=== PATIENT | male | born 1950 | race Caucasian/White ===

== ENCOUNTER 2016-12-02 14:59 | Observation (INO) ==
[2016-12-02] MEDS ORDERED: Ondansetron 4 MG/2 ML VIAL IVP ONE (15:27)
[2016-12-02] MEDS ORDERED: 0.9 % Sodium Chloride 1,000 ML IVC ONE (15:27)
[2016-12-02 15:43] LABS: Basophils % 0.2 %; Eosinophils % 0.4 %; Hematocrit 49.7 % (37.5-50.1); Hemoglobin 16.7 g/dL (12.9-16.9); Immature Granulocytes % 0.4 % (0-4); Lymphocytes # 0.7 K/mcL (0.6-4.6); Lymphocytes % 7.5 %; Mean Corpuscular HGB Conc 33.6 g/dL (31.6-35.5); Mean Corpuscular Hemoglobin 31.8 pg (28.0-33.3); Mean Corpuscular Volume 94.7 fL (83.0-100.0); Mean Platelet Volume 9.7 fL (9.4-12.4); Monocytes # 0.3 K/mcL (0.0-1.3); Monocytes % 2.8 %; Neutrophils # 8.4 K/mcL (1.6-8.9); Platelet Count 201 K/mcL (140-400); Red Blood Count 5.25 M/mcL (4.19-5.50); Red Cell Distribution Width 12.5 % (11.5-14.5); Segmented Neutrophils % 88.7 %
[2016-12-02 15:50] LABS: Prothrombin Time 10.7 Seconds (9.4-12.1)
[2016-12-02 15:53] LABS: Activated Partial Thrombo Time 25.4 Seconds (26.0-36.0)
[2016-12-02 16:03] LABS: Albumin 4.1 g/dL (3.5-5.0); Albumin/Globulin Ratio 1.3 (1.1-2.2); Alkaline Phosphatase 68 Units/L (38-126); Aspartate Amino Transferase 20 Units/L (5-34); BUN/Creatinine Ratio 18 (6-26); Bilirubin,Direct 0.3 mg/dL (0.0-0.5); Bilirubin,Indirect 0.4 mg/dL (0.0-1.2); Bilirubin,Total 0.7 mg/dL (0.2-1.2); Blood Urea Nitrogen 21 mg/dL (8-26); Calcium 9.5 mg/dL (8.6-10.8); Carbon Dioxide 24 mEq/L (19-29); Chloride 104 mEq/L (98-109); Globulin 3.2 g/dL (2.4-3.5); Glucose 113 mg/dL (70-99); Lipase 153 Units/L (8-78); Osmolality,Calculated 294 (280-300); Potassium 3.3 mEq/L (3.5-4.5); Sodium 140 mEq/L (136-145); Total Protein 7.3 g/dL (6.0-8.3); eGFR For African Americans > 60 (> 60); eGFR For Non-African Americans > 60 (> 60)
[2016-12-02 16:08] LABS: Alanine Aminotransferase < 6 Units/L (0-55)
--- NOTE | 2016-12-02 16:16 | Emergency Department Note ---
Disposition Clinical Impression: Nausea & vomiting, Elevated lipase Disposition: Home, Self-Care Condition: Good General Adult HPI - General Chief complaint: ED Abdominal Pain Stated complaint: abd pain, vomiting Time Seen by Provider: 12/02/16 15:26 Source: patient, family Limitations: no limitations Nursing Notes Reviewed: Yes Vital Signs Reviewed: Yes - History of Present Illness Pain Scale: 6 - Related Data Home Medications Medication Instructions Recorded Confirmed Celecoxib [Celebrex] 200 mg PO BID 12/02/16 12/02/16 L. Acidophilus/Pectin, [place] 1 cap PO DAILY 12/02/16 12/02/16 [Acidophilus Probiotic Capsule] Multivitamin [Multi-Day Vitamins] 1 tab PO DAILY 12/02/16 12/02/16 Zolpidem [Ambien] 10 mg PO HS 12/02/16 12/02/16 Allergies Allergy/AdvReac Type Severity Reaction Status Date / Time No Known Allergies Allergy Verified 12/02/16 16:25 Past Medical History - Past Medical History Medical history: Reports: hypertension - Social History Smoking Status: Never smoker Alcohol use: Reports: none Drug use: Reports: none Physical Exam - General Limitations: no limitations General appearance: anxious Course Vital Signs Temperature 0 F L 12/02/16 15:00 Pulse Rate 0 12/02/16 15:00 Respiratory Rate 16 12/02/16 15:00 Blood Pressure 0/0 12/02/16 15:00 O2 Sat by Pulse Oximetry 96 12/02/16 15:00 Temperature 97.3 F L 12/02/16 17:20 Pulse Rate 80 12/02/16 17:20 Respiratory Rate 18 12/02/16 17:21 Blood Pressure 109/68 12/02/16 17:21 O2 Sat by Pulse Oximetry 96 12/02/16 17:20 Oxygen Delivery Oxygen Delivery Room Air Medical Decision Making - MDM Narrative Medical decision making narrative: I examined this patient and my medical decision-making was reviewed with the FISHERY BIOLOGIST/PA/Advanced Practice Nurse/Resident Physician. I agree with the documented findings, disposition and treatment plan as described except to the extent set forth below. Patient was seen and evaluated by Dr. Simon and myself , I agree with his evaluation and management plan, I supervised the care of the patient throughout his stay. Patient comes in today with nausea vomiting diarrhea and feeling chills. He has ate mushrooms earlier today which triana mushrooms which they purchased from her friend. She said it looked like knott sheet the same once he did. He said he was feeling so before does not have any chest pain no back pain or shortness of breath. Her checking labs on him and reassess. Since he got sick soon after eating those that is actually up positive thing instead of a delayed toxicity which is common with toxic mushrooms. However this may not have remaining review of mushrooms either since we have been seeing a lot of GI illness with the same symptoms he has. Return to make him comfortable and then get laboratory work and reassess. 1624 hrs.: Patient's labs are back his lipase is elevated as LFTs are normal. When I bring him into the hospital. He will need following of his LFTs and lipase. I do not think he needs a CT as a abdomen at this point is not having abdominal pain. Stool culture is pending. Patient's agreeing with this plan. Impressions nausea vomiting diarrhea status post ingestion of mushrooms rule out hepatic toxicity. 1640 hrs.: I spoke with poison control and updated them on his lab work. Informed to be admitted. No further recommendations from them. - Lab Data Result diagrams: 12/02/16 15:31 12/02/16 15:31 Lab Results 12/02/16 12/02/16 12/02/16 Range/Units 15:31 15:31 15:31 WBC 9.4 (4.3-11.1) K/mcL RBC 5.25 (4.19-5.50) M/mcL Hgb 16.7 (12.9-16.9) g/dL Hct 49.7 (37.5-50.1) % MCV 94.7 (83.0-100.0) fL MCH 31.8 (28.0-33.3) pg MCHC 33.6 (31.6-35.5) g/dL RDW 12.5 (11.5-14.5) % Plt Count 201 (140-400) K/mcL MPV 9.7 (9.4-12.4) fL Immature Gran % 0.4 (0-4) % Seg Neutrophils % 88.7 % Lymphocytes % 7.5 % Monocytes % 2.8 % Eosinophils % 0.4 % Basophils % 0.2 % Neutrophils # 8.4 (1.6-8.9) K/mcL Lymphocytes # 0.7 (0.6-4.6) K/mcL Monocytes # 0.3 (0.0-1.3) K/mcL Eosinophils # 0.0 (0.0-0.6) K/mcL Basophils # 0.0 (0.0-0.2) K/mcL PT 10.7 (9.4-12.1) Seconds INR 1.0 APTT 25.4 L (26.0-36.0) Seconds Sodium (136-145) mEq/L Potassium (3.5-4.5) mEq/L Chloride (98-109) mEq/L Carbon Dioxide (19-29) mEq/L BUN (8-26) mg/dL Creatinine (0.72-1.25) mg/dL Est GFR ( Amer) (> 60) Est GFR (Non-Af Amer) (> 60) BUN/Creatinine Ratio (6-26) Glucose (70-99) mg/dL Calculated Osmolality (280-300) Calcium (8.6-10.8) mg/dL Total Bilirubin (0.2-1.2) mg/dL Direct Bilirubin (0.0-0.5) mg/dL Indirect Bilirubin (0.0-1.2) mg/dL AST (5-34) Units/L ALT (0-55) Units/L Alkaline Phosphatase (38-126) Units/L Troponin I 0.00 (0-0.03) ng/mL Serum Total Protein (6.0-8.3) g/dL Albumin (3.5-5.0) g/dL Globulin (2.4-3.5) g/dL Albumin/Globulin Ratio (1.1-2.2) Lipase (8-78) Units/L Stool Occult Blood (Negative) 12/02/16 12/02/16 Range/Units 15:31 16:00 WBC (4.3-11.1) K/mcL RBC (4.19-5.50) M/mcL Hgb (12.9-16.9) g/dL Hct (37.5-50.1) % MCV (83.0-100.0) fL MCH (28.0-33.3) pg MCHC (31.6-35.5) g/dL RDW (11.5-14.5) % Plt Count (140-400) K/mcL MPV (9.4-12.4) fL Immature Gran % (0-4) % Seg Neutrophils % % Lymphocytes % % Monocytes % % Eosinophils % % Basophils % % Neutrophils # (1.6-8.9) K/mcL Lymphocytes # (0.6-4.6) K/mcL Monocytes # (0.0-1.3) K/mcL Eosinophils # (0.0-0.6) K/mcL Basophils # (0.0-0.2) K/mcL PT (9.4-12.1) Seconds INR APTT (26.0-36.0) Seconds Sodium 140 (136-145) mEq/L Potassium 3.3 L (3.5-4.5) mEq/L Chloride 104 (98-109) mEq/L Carbon Dioxide 24 (19-29) mEq/L BUN 21 (8-26) mg/dL Creatinine 1.18 (0.72-1.25) mg/dL Est GFR ( Amer) > 60 (> 60) Est GFR (Non-Af Amer) > 60 (> 60) BUN/Creatinine Ratio 18 (6-26) Glucose 113 H (70-99) mg/dL Calculated Osmolality 294 (280-300) Calcium 9.5 (8.6-10.8) mg/dL Total Bilirubin 0.7 (0.2-1.2) mg/dL Direct Bilirubin 0.3 (0.0-0.5) mg/dL Indirect Bilirubin 0.4 (0.0-1.2) mg/dL AST 20 (5-34) Units/L ALT < 6 (0-55) Units/L Alkaline Phosphatase 68 (38-126) Units/L Troponin I (0-0.03) ng/mL Serum Total Protein 7.3 (6.0-8.3) g/dL Albumin 4.1 (3.5-5.0) g/dL Globulin 3.2 (2.4-3.5) g/dL Albumin/Globulin Ratio 1.3 (1.1-2.2) Lipase 153 H (8-78) Units/L Stool Occult Blood Positive A (Negative)
--- NOTE | 2016-12-02 16:26 | Emergency Department Note ---
Disposition Clinical Impression: Elevated lipase Nausea & vomiting Qualifiers: Vomiting type: unspecified Vomiting Intractability: non-intractable Qualified Code(s): R11.2 - Nausea with vomiting, unspecified Disposition: Home, Self-Care Condition: Good Time of Disposition: 17:35 General Adult HPI - General Chief complaint: ED Abdominal Pain Stated complaint: abd pain, vomiting Time Seen by Provider: 12/02/16 15:26 Source: patient, family Limitations: no limitations Nursing Notes Reviewed: Yes Vital Signs Reviewed: Yes - History of Present Illness HPI Narrative: Patient name Rickey snider around 11:30 today. He started feeling very weak and nauseated around 1:30. Got very chilled. He has been vomiting and had several episodes of diarrhea since. He complains of a cramping abdominal pain. There are no alleviating or provoking factors. His also ate these mushrooms and is not symptomatic. The only thing the patient ate that his did not was one piece of ma. Pain Scale: 6 - Related Data Home Medications Medication Instructions Recorded Confirmed Celecoxib [Celebrex] 200 mg PO BID 12/02/16 12/02/16 L. Acidophilus/Pectin, [place] 1 cap PO DAILY 12/02/16 12/02/16 [Acidophilus Probiotic Capsule] Multivitamin [Multi-Day Vitamins] 1 tab PO DAILY 12/02/16 12/02/16 Zolpidem [Ambien] 10 mg PO HS 12/02/16 12/02/16 Allergies Allergy/AdvReac Type Severity Reaction Status Date / Time No Known Allergies Allergy Verified 12/02/16 16:25 All systems ED: reviewed and negative except as stated. Constitutional: Reports: chills. Denies: fever ENT ED: Denies: throat pain, congestion, dysphagia Cardiovascular: Denies: chest pain, palpitations, dyspnea on exertion, syncope Respiratory: Denies: cough, dyspnea, wheezes Gastrointestinal: Reports: abdominal pain (Cramping is having diarrhea.), nausea , vomiting (Began around 1:30 this afternoon.), diarrhea (Several episodes began at 1:30 this afternoon.). Denies: hematemesis, melena, hematochezia Genitourinary: Denies: urgency, dysuria, frequency, hematuria Musculoskeletal: Denies: back pain, neck pain Integumentary: Denies: rash Neurological: Reports: weakness (Since the nausea vomiting and diarrhea began.) . Denies: headache Past Medical History - Past Medical History Medical history: Reports: hypertension - Social History Smoking Status: Never smoker Alcohol use: Reports: none Drug use: Reports: none Physical Exam - General Limitations: no limitations General appearance: alert, anxious - Head Head exam: atraumatic, normocephalic - Eye Eye exam: Present: normal appearance, PERRL, EOMI. Absent: scleral icterus - ENT ENT exam: normal exam, normal oropharynx, mucous membranes moist - Neck Neck exam: Present: normal inspection, full ROM, trachea midline - Chest Chest inspection: Present: normal inspection, symmetric chest wall rise. Absent : tenderness, rash - Respiratory Respiratory exam: Present: normal lung sounds bilaterally. Absent: respiratory distress - Cardiovascular Cardiovascular exam: Present: regular rate, normal rhythm, normal heart sounds - Abdominal Exam Abdominal exam: Present: soft, Non-Tender (No pain on palpation.), hyperactive bowel sounds. Absent: organomegaly, Mcnally's sign, Rovsing's sign, tenderness at McBurney's Point - Extremities Exam Extremities exam: Present: normal inspection, full ROM, normal capillary refill. Absent: tenderness, pedal edema - Back Exam Back exam: Present: normal inspection, full ROM. Absent: tenderness, CVA tenderness (R), CVA tenderness (L) - Neurological Exam Neurological exam: Present: alert, oriented X3, normal gait - Psychiatric Psychiatric exam: Present: normal affect, normal mood - Skin Skin exam: Present: warm, dry, intact, normal color. Absent: rash, cyanosis, erythema Course Course Narrative: Now patient presenting to the emergency department after consuming raw mushrooms at 11:30 today. He states around 1:30 PM and Nausea vomiting and diarrhea. He does complain of abdominal cramping associated with the diarrhea. His mushrooms and is not sick. He states he did eat additional piece of ma. The purchase the mushrooms from another person. The states that the patient did end up spitting out the stem of one of the mushrooms saying that was very chewy. He states that he is chilling. He has had several episodes of diarrhea while he is in the emergency department. He denies any shortness of breath or chest pain. His lung sounds are clear his heart sounds are normal. His abdomen is soft and nontender on palpation. We will admit patient for serial liver enzymes. For possible mushroom toxicity. His lipase is elevated. We have started him on fluids. We have also given him Zofran. This has stopped his vomiting at this time. We will give him some fentanyl for the cramping in his abdomen. Patient is agreeable to admission. - Reevaluation(s) Reevaluation #1: Patient is having several bouts of diarrhea while here in the emergency department. He is complaining of abdominal cramping at this time. We will give patient medication to help with the cramping. He is agreeable to admission at this time. We will need to follow his LFTs while he is here. He does have an elevated lipase. We will give him fluids and continue with his nausea medication. Time: 16:37 Vital Signs Temperature 0 F L 12/02/16 15:00 Pulse Rate 0 12/02/16 15:00 Respiratory Rate 16 12/02/16 15:00 Blood Pressure 0/0 12/02/16 15:00 O2 Sat by Pulse Oximetry 96 12/02/16 15:00 Temperature 97.3 F L 12/02/16 17:20 Pulse Rate 80 12/02/16 17:20 Respiratory Rate 18 12/02/16 17:21 Blood Pressure 109/68 12/02/16 17:21 O2 Sat by Pulse Oximetry 96 12/02/16 17:20 Oxygen Delivery Oxygen Delivery Room Air Medical Decision Making - Medical Records Medical records reviewed: Yes I reviewed the patient's medical records. - Lab Data Lab results reviewed: Yes I reviewed the patient's lab results. Result diagrams: 12/02/16 15:31 12/02/16 15:31 Lab Results 12/02/16 12/02/16 12/02/16 Range/Units 15:31 15:31 15:31 WBC 9.4 (4.3-11.1) K/mcL RBC 5.25 (4.19-5.50) M/mcL Hgb 16.7 (12.9-16.9) g/dL Hct 49.7 (37.5-50.1) % MCV 94.7 (83.0-100.0) fL MCH 31.8 (28.0-33.3) pg MCHC 33.6 (31.6-35.5) g/dL RDW 12.5 (11.5-14.5) % Plt Count 201 (140-400) K/mcL MPV 9.7 (9.4-12.4) fL Immature Gran % 0.4 (0-4) % Seg Neutrophils % 88.7 % Lymphocytes % 7.5 % Monocytes % 2.8 % Eosinophils % 0.4 % Basophils % 0.2 % Neutrophils # 8.4 (1.6-8.9) K/mcL Lymphocytes # 0.7 (0.6-4.6) K/mcL Monocytes # 0.3 (0.0-1.3) K/mcL Eosinophils # 0.0 (0.0-0.6) K/mcL Basophils # 0.0 (0.0-0.2) K/mcL PT 10.7 (9.4-12.1) Seconds INR 1.0 APTT 25.4 L (26.0-36.0) Seconds Sodium (136-145) mEq/L Potassium (3.5-4.5) mEq/L Chloride (98-109) mEq/L Carbon Dioxide (19-29) mEq/L BUN (8-26) mg/dL Creatinine (0.72-1.25) mg/dL Est GFR ( Amer) (> 60) Est GFR (Non-Af Amer) (> 60) BUN/Creatinine Ratio (6-26) Glucose (70-99) mg/dL Calculated Osmolality (280-300) Calcium (8.6-10.8) mg/dL Total Bilirubin (0.2-1.2) mg/dL Direct Bilirubin (0.0-0.5) mg/dL Indirect Bilirubin (0.0-1.2) mg/dL AST (5-34) Units/L ALT (0-55) Units/L Alkaline Phosphatase (38-126) Units/L Troponin I 0.00 (0-0.03) ng/mL Serum Total Protein (6.0-8.3) g/dL Albumin (3.5-5.0) g/dL Globulin (2.4-3.5) g/dL Albumin/Globulin Ratio (1.1-2.2) Lipase (8-78) Units/L Stool Occult Blood (Negative) 12/02/16 12/02/16 Range/Units 15:31 16:00 WBC (4.3-11.1) K/mcL RBC (4.19-5.50) M/mcL Hgb (12.9-16.9) g/dL Hct (37.5-50.1) % MCV (83.0-100.0) fL MCH (28.0-33.3) pg MCHC (31.6-35.5) g/dL RDW (11.5-14.5) % Plt Count (140-400) K/mcL MPV (9.4-12.4) fL Immature Gran % (0-4) % Seg Neutrophils % % Lymphocytes % % Monocytes % % Eosinophils % % Basophils % % Neutrophils # (1.6-8.9) K/mcL Lymphocytes # (0.6-4.6) K/mcL Monocytes # (0.0-1.3) K/mcL Eosinophils # (0.0-0.6) K/mcL Basophils # (0.0-0.2) K/mcL PT (9.4-12.1) Seconds INR APTT (26.0-36.0) Seconds Sodium 140 (136-145) mEq/L Potassium 3.3 L (3.5-4.5) mEq/L Chloride 104 (98-109) mEq/L Carbon Dioxide 24 (19-29) mEq/L BUN 21 (8-26) mg/dL Creatinine 1.18 (0.72-1.25) mg/dL Est GFR ( Amer) > 60 (> 60) Est GFR (Non-Af Amer) > 60 (> 60) BUN/Creatinine Ratio 18 (6-26) Glucose 113 H (70-99) mg/dL Calculated Osmolality 294 (280-300) Calcium 9.5 (8.6-10.8) mg/dL Total Bilirubin 0.7 (0.2-1.2) mg/dL Direct Bilirubin 0.3 (0.0-0.5) mg/dL Indirect Bilirubin 0.4 (0.0-1.2) mg/dL AST 20 (5-34) Units/L ALT < 6 (0-55) Units/L Alkaline Phosphatase 68 (38-126) Units/L Troponin I (0-0.03) ng/mL Serum Total Protein 7.3 (6.0-8.3) g/dL Albumin 4.1 (3.5-5.0) g/dL Globulin 3.2 (2.4-3.5) g/dL Albumin/Globulin Ratio 1.3 (1.1-2.2) Lipase 153 H (8-78) Units/L Stool Occult Blood Positive A (Negative)
[2016-12-02] MEDS ORDERED: *HR* FentaNYL (PF) 100 MCG/2 ML VIAL IVP ONE (16:39)
[2016-12-02] MEDS ORDERED: 0.9 % Sodium Chloride 1,000 ML IVC SCH (20:30)
[2016-12-02 21:01] LABS: Bilirubin,Urine Small (Negative); Blood,Urine Negative (Negative); Clarity,Urine Clear (Clear); Glucose,Urine (UA) Normal (Normal); Ketones,Urine Trace mg/dL (Negative); Leukocyte Esterase,Urine Negative (Negative); Nitrite,Urine Negative (Negative); PH,Urine 5.5 pH Units (5.0-8.0); Protein,Urine 30 mg/dL (Neg-Trace); Specific Gravity,Urine >= 1.030 (1.010-1.025); Urobilinogen,Urine Normal (Normal)
[2016-12-02 21:02] LABS: Color,Urine Dark Yellow (Yellow)
[2016-12-02 21:13] LABS: Mucus,Urine Moderate (Few)
[2016-12-02 21:14] LABS: WBC,Urine 0-3 per hpf (0-3)
[2016-12-02 21:15] LABS: RBC,Urine 0-3 per hpf (0-3)
[2016-12-02] MEDS ORDERED: Naloxone 0.4 MG/ML INJ IVP PRN (21:23)
[2016-12-02] MEDS ORDERED: Acetaminophen 325 MG TABLET PO PRN (21:23)
[2016-12-02] MEDS ORDERED: Ondansetron 4 MG/2 ML VIAL IVP PRN (21:24)
[2016-12-02] MEDS ORDERED: Pantoprazole 40 MG VIAL IVP ONE (21:24)
[2016-12-02] MEDS ORDERED: Potassium Chloride Elixir 20 MEQ/15 ML UDC PO ONE (21:26)
--- NOTE | 2016-12-02 21:27 | Internal Med History&Physical ---
Date of Encounter: 12/02/16 Time of Encounter: 21:00 Assessment and Plan (1) Mushroom poisoning Current visit: Yes Status: Acute multiple episodes of vomiting and diarrhea after eating triana / false triana mushrooms at about 11:30 AM. His symptoms started about 1:30 PM. WIll monitor renal function and LFTs. When the pt improves, consider discussing with poison control prior to discharge. Qualifiers: Encounter type: initial encounter Injury intent: accidental or unintentional Qualified Code(s): T62.0X1A - Toxic effect of ingested mushrooms , accidental (unintentional), initial encounter (2) Nausea & vomiting Current visit: Yes Status: Acute Likely due to mushroom poisoning. Improved with antiemetics. On IV fluids. Qualifiers: Vomiting type: unspecified Vomiting Intractability: intractable Qualified Code(s): R11.2 - Nausea with vomiting, unspecified (3) Diarrhea Current visit: Yes Status: Acute Likely due to mushroom poisoning. Improved. On IV fluids. Qualifiers: Diarrhea type: unspecified type Qualified Code(s): R19.7 - Diarrhea, unspecified (4) Elevated lipase Current visit: Yes Status: Acute Possibly related to nausea / vomiting / gastritis. will treat with IV fluids and pantoprazole. Internal Medicine - H&P: HPI Chief complaint: vomiting, diarrhea Admitted From: Emergency Dept Plans for Post Hospital Care: Home History of present illness: Mr. Fuentes is a 66 year old male with past medical hx significant for rheumatoid arthritis (not on biologicals), presents with multiple episodes of vomiting and diarrhea after eating triana / false triana mushrooms at about 11 :30 AM. His symptoms started about 1:30 PM. Started as nausea, vomiting followed by episodes of diarrhea. Had some blood in the last episodes of diarrhea. Reports abdominal cramping, which is generalized and some improvement with the pain meds in the ER. No fever, shortness of breath, chest pain, cough or expectoration. Pts also ate the mushrooms but did not develop symptoms (there is suspicion that the pt may have eaten false triana). Pt was given Zofran, IV fluids and IV fentanyl in the ER. ER physician discussed with poison control, and recommended monitoring LFTS and admission. Pt is admitted to the hospitalist service for further management. Past Med Surg Social Fam HX - Past Medical History Medical history: hypertension Psychiatric history: no psych history - Social History Smoking Status: Never smoker Smokeless Tobacco Status: No Alcohol use: none, occasionally Drug use: none - Family History Mother Living Status: Age at : 89 Cause of : Heart Failure Hx Family Cardiac Disorders: Yes Father Living Status: Internal Medicine - H&P: Meds Celecoxib [Celebrex] 200 mg PO BID 12/02/16 [History] L. Acidophilus/Pectin, [place] [Acidophilus Probiotic Capsule] 1 cap PO DAILY [History] Multivitamin [Multi-Day Vitamins] 1 tab PO DAILY 12/02/16 [History] Zolpidem [Ambien] 10 mg PO HS 12/02/16 [History] Allergies No Known Allergies Allergy (Verified 12/02/16 16:25) All Systems PM: A 10-system review of systems was performed and is negative for pertinent findings except as documented above in the HPI. - Constitutional Vitals: Temp Pulse Resp BP Pulse Ox 97.9 F 88 18 160/98 98 12/02/16 18:52 12/02/16 18:52 12/02/16 18:52 12/02/16 18:52 12/02/16 18:52 Exam: General: Not in acute distress at the time of my evaluation HEENT: Oral mucosa is moist. No conjunctival palor or scleral icterus Neck: No obvious neck swellings Lungs: Clear to auscultation Cardiac: Regular rate and rhythm. No significant murmurs Abdomen: mild tenderness. Bowel sounds present Genitourinary: No edge catheter Neurological: Alert and oriented. No gross localizing deficits Psych: Not aggressive or agitated Extremities: no significant leg edema Skin: No generalized rash Internal Med - H&P Results - Labs CBC & Chem 7: 12/02/16 15:31 12/02/16 15:31 Labs: Urine 12/02/16 Range/Units 20:25 Urine Color Dark Yellow (Yellow) Urine Clarity Clear (Clear) Urine pH 5.5 (5.0-8.0) pH Units Ur Specific [place] >= 1.030 H (1.010-1.025) Urine Protein 30 H (Neg-Trace) mg/dL Urine Glucose (UA) Normal (Normal) mg/dL - VTE Reasons for not Prescribing Prophylaxis: Treatment not Indicated - Low risk for VTE
[2016-12-02] MEDS: 0.9 % Sodium Chloride 1,000 ML IVC SCH (22:06)
[2016-12-03] MEDS: 0.9 % Sodium Chloride 1,000 ML IVC SCH (04:31)
[2016-12-03 07:05] VITALS: BP 128/57
[2016-12-03 07:32] LABS: INR 1.1; Prothrombin Time 11.6 Seconds (9.4-12.1)
[2016-12-03 07:41] LABS: Basophils % 0.4 %; Eosinophils # 0.1 K/mcL (0.0-0.6); Eosinophils % 0.7 %; Hematocrit 43.6 % (37.5-50.1); Immature Granulocytes % 0.3 % (0-4); Lymphocytes # 0.4 K/mcL (0.6-4.6); Lymphocytes % 4.9 %; Mean Corpuscular HGB Conc 33.3 g/dL (31.6-35.5); Mean Corpuscular Volume 96.2 fL (83.0-100.0); Mean Platelet Volume 10.7 fL (9.4-12.4); Monocytes # 0.8 K/mcL (0.0-1.3); Neutrophils # 6.3 K/mcL (1.6-8.9); Platelet Count 188 K/mcL (140-400); Red Blood Count 4.53 M/mcL (4.19-5.50); Red Cell Distribution Width 12.9 % (11.5-14.5); Segmented Neutrophils % 83.7 %
[2016-12-03 07:57] LABS: Hemoglobin 14.5 g/dL (12.9-16.9)
[2016-12-03] MEDS ORDERED: 0.9 % Sodium Chloride 1,000 ML IVC SCH (08:20)
[2016-12-03 08:27] LABS: Albumin/Globulin Ratio 1.2 (1.1-2.2); Alkaline Phosphatase 43 Units/L (38-126); Aspartate Amino Transferase 14 Units/L (5-34); BUN/Creatinine Ratio 25 (6-26); Blood Urea Nitrogen 23 mg/dL (8-26); Carbon Dioxide 18 mEq/L (19-29); Chloride 106 mEq/L (98-109); Globulin 2.5 g/dL (2.4-3.5); Glucose 107 mg/dL (70-99); Osmolality,Calculated 286 (280-300); Sodium 136 mEq/L (136-145); eGFR For African Americans > 60 (> 60); eGFR For Non-African Americans > 60 (> 60)
[2016-12-03 08:33] LABS: Alanine Aminotransferase < 6 Units/L (0-55); Calcium 7.8 mg/dL (8.6-10.8); Total Protein 5.5 g/dL (6.0-8.3)
--- NOTE | 2016-12-03 10:08 | Internal Med Progress Note ---
<Ed Noel - Last Filed: 12/03/16 10:06> Date of Encounter: 12/03/16 Time of Encounter: 10:06 - Assessment and plan (1) Mushroom poisoning Status: Acute Assessment and plan: Symptoms resolved. Patient ingested triana mushrooms and subsequently resulted in nausea vomiting and diarrhea which leads to concern for false triana ingestion. He has previously ingested mushrooms including triana mushrooms without throat swelling, nausea vomiting or diarrhea in the past. - Patient tolerating by mouth intake, vitals are stable, laboratory work appropriate. - I spoke with [place] poison control who are not completely convinced this is a false triana mushroom ingestion, his liver enzymes were never elevated and are normal today. Patient is asymptomatic. Plan: - Advance diet - Patient is stable for discharge this morning, follow with primary care provider. Qualifiers: Encounter type: initial encounter Injury intent: accidental or unintentional Qualified Code(s): T62.0X1A - Toxic effect of ingested mushrooms , accidental (unintentional), initial encounter (2) Nausea & vomiting Status: Acute Assessment and plan: Nausea vomiting consistent with enterocolitis. Specific source unknown correlating with wild mushroom ingestion. Unsure if this is a false morale mushroom ingestion intoxication versus gastroenterocolitis from another source ( viral versus bacterial). - Symptoms have resolved patient is tolerating by mouth intake. Qualifiers: Vomiting type: unspecified Vomiting Intractability: intractable Qualified Code(s): R11.2 - Nausea with vomiting, unspecified (3) Elevated lipase Status: Acute Assessment and plan: Elevated lipase likely secondary to gastroenterocolitis. Patient is asymptomatic and tolerating by mouth intake. - No need to repeat lipase. (4) Diarrhea Status: Acute Assessment and plan: Resolved. Qualifiers: Diarrhea type: unspecified type Qualified Code(s): R19.7 - Diarrhea, unspecified - Subjective Interval history: Mr. Fuentes 66-year-old male has been seen and evaluated this morning patient bedside. He is alert awake interactive in no acute distress. He said that he feels much better is without nausea vomiting diarrhea or abdominal discomfort. In further discussion regarding his symptoms he said that yesterday afternoon he ate triana mushrooms purchased from a friend and couple hours post ingestion had follow-up diaphoresis and clamminess nausea vomiting and diarrhea. His symptoms have since subsided and he had tolerated by mouth intake this morning. He denies any further diarrhea, blood in his bowel movements or any blood in his vomit. He feels much better and is looking forward to discharge. - Constitutional Vitals: Temp Pulse Resp BP Pulse Ox 98.2 F 80 16 128/57 99 12/03/16 07:04 12/03/16 07:04 12/03/16 07:04 12/03/16 07:04 12/03/16 07:04 General appearance: Present: cooperative, A&O X 3, pleasant, no acute distress - Head Head exam: Present: atraumatic, normocephalic - Eye Eye exam: Present: PERRL, conjuntiva pink, sclera anicteric Pupils: Present: PERRL - ENT ENT exam: Present: mucous membranes moist - Neck Neck exam general surgery: Present: supple, trachea midline. Absent: lymphadenopathy - Respiratory Respiratory exam: Present: CTAB. Absent: accessory muscle use, rales, rhonchi, wheezes - Cardiovascular Cardiovascular exam: Present: RRR, +S1, +S2. Absent: diastolic murmur, gallop, rubs, systolic murmur - GI/Abdominal GI/Abdominal exam: Present: normal bowel sounds, soft, no peritoneal signs. Absent: distended, tenderness Additional comments: Slightly tympanic over the epigastric region. 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 Absent: pedal edema, tenderness, warm - Neurological Exam Neurological exam: Present: alert, CN II-XII intact, oriented X3, no focal deficits. Absent: facial droop, speech deficit - Psychiatric Psychiatric exam: Present: normal affect, normal mood Internal Medicine: Result - Labs CBC & Chem 7: 12/03/16 04:58 12/03/16 04:58 Labs: Short CBC 12/03/16 Range/Units 04:58 WBC 7.5 (4.3-11.1) K/mcL Hgb 14.5 D (12.9-16.9) g/dL Hct 43.6 (37.5-50.1) % Plt Count 188 (140-400) K/mcL Neutrophils # 6.3 (1.6-8.9) K/mcL BMP 12/03/16 04:58 Sodium 136 Potassium 4.0 Chloride 106 Carbon Dioxide 18 L BUN 23 Creatinine 0.93 Glucose 107 H Calcium 7.8 L D Liver Function 12/03/16 Range/Units 04:58 Total Bilirubin 1.0 (0.2-1.2) mg/dL AST 14 (5-34) Units/L ALT < 6 (0-55) Units/L Alkaline Phosphatase 43 (38-126) Units/L Albumin 3.0 L D (3.5-5.0) g/dL Urine 12/02/16 Range/Units 20:25 Urine Color Dark Yellow (Yellow) Urine Clarity Clear (Clear) Urine pH 5.5 (5.0-8.0) pH Units Ur Specific [place] >= 1.030 H (1.010-1.025) Urine Protein 30 H (Neg-Trace) mg/dL Urine Glucose (UA) Normal (Normal) mg/dL - ABG Interpretation ABG results: PT/INR, D-dimer PT 11.6 Seconds (9.4-12.1) 12/03/16 04:58 - VTE Reasons for not Prescribing Prophylaxis: Treatment not Indicated - Low risk for VTE Consult Discharge Plan - Plan Additional Instructions: Follow-up with primary care provider in the next 3-5 days. If any new concerning medical symptoms including recurrent nausea vomiting diarrhea abdominal pain or chest pain he should return to the emergency department for further evaluation. - Avoid wild mushrooms. Referrals: Yosvany Vaz DO [Primary Care Provider] - (Appointment has been requested. The office will call Sunday with appointment date and time.) <Lisa Velazco - Last Filed: 12/03/16 17:32> Date of Encounter: 12/03/16 - Constitutional Vitals: Temp Pulse Resp BP Pulse Ox 98.2 F 80 16 128/57 99 12/03/16 07:04 12/03/16 07:04 12/03/16 07:04 12/03/16 07:04 12/03/16 07:04 Internal Medicine: Result - Labs CBC & Chem 7: 12/03/16 04:58 12/03/16 04:58 Labs: Short CBC 12/03/16 Range/Units 04:58 WBC 7.5 (4.3-11.1) K/mcL Hgb 14.5 D (12.9-16.9) g/dL Hct 43.6 (37.5-50.1) % Plt Count 188 (140-400) K/mcL Neutrophils # 6.3 (1.6-8.9) K/mcL BMP 12/03/16 04:58 Sodium 136 Potassium 4.0 Chloride 106 Carbon Dioxide 18 L BUN 23 Creatinine 0.93 Glucose 107 H Calcium 7.8 L D Liver Function 12/03/16 Range/Units 04:58 Total Bilirubin 1.0 (0.2-1.2) mg/dL AST 14 (5-34) Units/L ALT < 6 (0-55) Units/L Alkaline Phosphatase 43 (38-126) Units/L Albumin 3.0 L D (3.5-5.0) g/dL Urine 12/02/16 Range/Units 20:25 Urine Color Dark Yellow (Yellow) Urine Clarity Clear (Clear) Urine pH 5.5 (5.0-8.0) pH Units Ur Specific [place] >= 1.030 H (1.010-1.025) Urine Protein 30 H (Neg-Trace) mg/dL Urine Glucose (UA) Normal (Normal) mg/dL - ABG Interpretation ABG results: PT/INR, D-dimer PT 11.6 Seconds (9.4-12.1) 12/03/16 04:58 - Attending Attestation I examined this patient and reviewed laboratory, imaging and all diagnostic data. My medical decision-making was reviewed with Dr Noel - Resident Physician. I agree with the documented findings, disposition and treatment plan as described above
--- NOTE | 2016-12-03 10:23 | Discharge Summary ---
<Ed Noel - Last Filed: 12/03/16 10:21> Date of Encounter: 12/03/16 Time of Encounter: 10:21 - Discharge Diagnosis (1) Mushroom poisoning Priority: Primary Status: Acute Comments: Suspected mushroom intoxication but cannot rule out gastroenterocolitis of other source. Qualifiers: Encounter type: initial encounter Injury intent: accidental or unintentional Qualified Code(s): T62.0X1A - Toxic effect of ingested mushrooms , accidental (unintentional), initial encounter (2) Nausea & vomiting Priority: Primary Status: Resolved Comments: Resolved. Qualifiers: Vomiting type: unspecified Vomiting Intractability: intractable Qualified Code(s): R11.2 - Nausea with vomiting, unspecified (3) Elevated lipase Priority: Primary Status: Acute (4) Diarrhea Priority: Primary Status: Resolved Comments: Resolved. Qualifiers: Diarrhea type: unspecified type Qualified Code(s): R19.7 - Diarrhea, unspecified - Discharge Medications Home Medications: Celecoxib [Celebrex] 200 mg PO BID 12/02/16 [History] L. Acidophilus/Pectin, [place] [Acidophilus Probiotic Capsule] 1 cap PO DAILY [History] Multivitamin [Multi-Day Vitamins] 1 tab PO DAILY 12/02/16 [History] Zolpidem [Ambien] 10 mg PO HS 12/02/16 [History] Allergies/Adverse Reactions: Allergies No Known Allergies Allergy (Verified 12/02/16 16:25) Date of admission: 12/02/16 17:02 Primary care physician: Yosvany Vaz, Discharging clinician: Ed Noel Anticipated date of discharge: 12/03/16 - Patient Status Disposition: Home, Self-Care Condition: Good Functional capacity at discharge: independent ambulation Overall status at discharge: patient is progressing back to baseline - Discharge Instructions Follow Up With: Yosvany Vaz DO [Primary Care Provider] - (Appointment has been requested. The office will call Sunday with appointment date and time.) Additional Instructions: Follow-up with primary care provider in the next 3-5 days. If any new concerning medical symptoms including recurrent nausea vomiting diarrhea abdominal pain or chest pain he should return to the emergency department for further evaluation. - Avoid wild mushrooms. - Diet and Activity Activity: increase activity as tolerated Diet: advance to your usual diet Interval History: Mr. Fuentes 66-year-old male was admitted on 12/02/2016 with symptoms of nausea, vomiting, diarrhea and abdominal discomfort secondary to wild mushroom ingestion. Patient had ingested triana wild mushrooms several hours preceding symptoms. Patient was brought to the emergency department by his was evaluated and found to have an elevated lipase but normal liver function tests. Admitted for observation, poison control was contacted and patient was provided IV fluids for rehydration and medications for symptom control. He was stable overnight with resolution of his nausea, vomiting, diarrhea and tolerated by mouth intake. His vitals remained stable overnight. There was no elevation in his LFTs the following morning. [place] poison control was contacted again in the morning patient case was rediscussed with no further recommendations. Patient was seen and evaluated patient bedside this morning and deemed stable for discharge home with close follow-up with her primary care provider. This was discussed with Mr. Fuentes who is in agreement. Hospital course: Mr. Fuentes is a 66 year old male - Time Spent with Patient Total time spent providing and/or coordinating discharge services: - Constitutional Vitals: Temp Pulse Resp BP Pulse Ox 98.2 F 80 16 128/57 99 12/03/16 07:04 12/03/16 07:04 12/03/16 07:04 12/03/16 07:04 12/03/16 07:04 General appearance: Present: cooperative, A&O X 3, pleasant, no acute distress - Head Head exam: Present: atraumatic, normocephalic - Eye Eye exam: Present: PERRL, conjuntiva pink, sclera anicteric Pupils: Present: PERRL - ENT ENT exam: Present: mucous membranes moist - Neck Neck exam general surgery: Present: supple, trachea midline. Absent: lymphadenopathy - Respiratory Respiratory exam: Present: CTAB. Absent: accessory muscle use, rales, rhonchi, wheezes - Cardiovascular Cardiovascular exam: Present: RRR, +S1, +S2. Absent: diastolic murmur, gallop, rubs, systolic murmur - GI/Abdominal GI/Abdominal exam: Present: normal bowel sounds, soft, no peritoneal signs. Absent: distended, tenderness - Extremities Exam Extremities exam: Present: warm, radial pulses palpable and symetrical. Absent : calf tenderness, cyanotic, pedal edema Additional comments: joint swelling (Patient has bilateral wrist joint swelling associated with arthritis which is chronic, no pain with joint flexibility, no erythema or warmth.), normal capillary refill, radial pulses palpable and symetrical. Absent: pedal edema, tenderness, warm - Neurological Exam Neurological exam: Present: CN II-XII intact, oriented X3, no focal deficits. Absent: pronater drift, facial droop, speech deficit - Psychiatric Psychiatric exam: Present: normal affect, normal mood - VTE Reasons for not Prescribing Prophylaxis: Treatment not Indicated - Low risk for VTE <Lisa Velazco E - Last Filed: 12/03/16 17:33> Date of Encounter: 12/03/16 Date of admission: 12/02/16 17:02 Primary care physician: Yosvany Vaz, [facility] course: Mr. Fuentes is a 66 year old male - Time Spent with Patient Total time spent providing and/or coordinating discharge services: - Constitutional Vitals: Temp Pulse Resp BP Pulse Ox 98.2 F 80 16 128/57 99 12/03/16 07:04 12/03/16 07:04 12/03/16 07:04 12/03/16 07:04 12/03/16 07:04 - Attending Attestation I examined this patient and reviewed laboratory, imaging and all diagnostic data. My medical decision-making was reviewed with Dr Noel - Resident Physician. I agree with the documented findings, disposition and treatment plan as described above
--- NOTE | 2016-12-03 20:31 | Electrocardiograph Report ---
[address] [id number] Test Date: 2016-12-02 Pat Name: Presley Fuentes Department: 102 Room: 3B Gender: M [employer]: Msc : 1950 Requested By: La Simon Order Number: [id number] Reading MD: Micky Zelaya MD Measurements Intervals Ord Rate: 62 P: 20 IL: 149 QRS: 47 QRSD: 92 T: 47 QT: 426 QTc: 431 Interpretive Statements SINUS RHYTHM Electronically Signed On 12-03-2016 20:29:37 EDT by Micky Zelaya MD
== END 2016-12-03 11:30 | disposition home or self-care (01) ==
LOC: 3BNU 14:59 → EMEROO 14:59 → 3BNU 17:29
PROVIDERS: ADMIT Hospitalist; ATTEND Nurse Practitioner Family

== ENCOUNTER 2021-07-14 14:16 | Inpatient (IN) ==
[2021-07-14 15:22] LABS: Basophils % 0.1 %; Hematocrit 39.8 % (37.5-50.1); Hemoglobin 13.1 g/dL (12.9-16.9); Immature Granulocytes % 0.6 % (0-4); Lymphocytes # 0.9 K/mcL (0.6-4.6); Mean Corpuscular HGB Conc 32.9 g/dL (31.6-35.5); Mean Corpuscular Hemoglobin 31.8 pg (28.0-33.3); Mean Corpuscular Volume 96.6 fL (83.0-100.0); Monocytes # 0.3 K/mcL (0.0-1.3); Monocytes % 2.5 %; Neutrophils # 9.8 K/mcL (1.6-8.9); Platelet Count 181 K/mcL (140-400); Red Blood Count 4.12 M/mcL (4.19-5.50); Red Cell Distribution Width 13.2 % (11.5-14.5); Segmented Neutrophils % 88.8 %
[2021-07-14 15:52] LABS: BUN/Creatinine Ratio 12 (6-26); Blood Urea Nitrogen 12 mg/dL (8-23); Calcium 7.9 mg/dL (8.6-10.3); Carbon Dioxide 26 mEq/L (23-29); Chloride 99 mEq/L (98-107); Glucose 104 mg/dL (70-105); Osmolality,Calculated 272 (280-300); Potassium 4.3 mEq/L (3.5-5.1); Sodium 131 mEq/L (136-145); Troponin I < 0.03 ng/mL (< 0.04); eGFR For African Americans > 60 (> 60); eGFR For Non-African Americans > 60 (> 60)
[2021-07-14] MEDS ORDERED: Acetaminophen 325 MG TABLET PO PRN (17:40)
[2021-07-14] MEDS ORDERED: Benzonatate 100 MG CAPSULE PO PRN (17:41)
[2021-07-14] MEDS ORDERED: Ondansetron 4 MG/2 ML VIAL IVP PRN (18:00)
[2021-07-14] MEDS ORDERED: Naloxone 0.4 MG/ML INJ IVP PRN (18:00)
[2021-07-14 18:31] LABS: Albumin 3.5 g/dL (3.5-5.7); Albumin/Globulin Ratio 1.2 (1.1-2.2); Bilirubin,Direct 0.2 mg/dL (0.0-0.2); Bilirubin,Indirect 0.5 mg/dL (0.0-1.0); Bilirubin,Total 0.7 mg/dL (0.3-1.0); Globulin 2.9 g/dL (2.4-3.5); Total Protein 6.4 g/dL (6.4-8.9)
[2021-07-14] MEDS: Ipratropium 1 PUFF INHALER IH SCH ×2 (20:23→23:35)
[2021-07-15 02:01] LABS: Basophils % 0.1 %; Hematocrit 38.2 % (37.5-50.1); Hemoglobin 13.1 g/dL (12.9-16.9); Immature Granulocytes % 0.8 % (0-4); Lymphocytes # 0.6 K/mcL (0.6-4.6); Lymphocytes % 5.1 %; Mean Corpuscular HGB Conc 34.3 g/dL (31.6-35.5); Mean Corpuscular Hemoglobin 33.1 pg (28.0-33.3); Mean Corpuscular Volume 96.5 fL (83.0-100.0); Mean Platelet Volume 10.3 fL (9.4-12.4); Monocytes # 0.2 K/mcL (0.0-1.3); Monocytes % 1.8 %; Neutrophils # 10.9 K/mcL (1.6-8.9); Platelet Count 203 K/mcL (140-400); Red Blood Count 3.96 M/mcL (4.19-5.50); Red Cell Distribution Width 13.3 % (11.5-14.5); Segmented Neutrophils % 92.2 %; White Blood Count 11.8 K/mcL (4.3-11.1)
[2021-07-15 02:23] LABS: Alanine Aminotransferase 41 Units/L (7-52); Albumin 3.4 g/dL (3.5-5.7); Albumin/Globulin Ratio 1.2 (1.1-2.2); Alkaline Phosphatase 44 Units/L (34-104); Aspartate Amino Transferase 52 Units/L (13-39); BUN/Creatinine Ratio 15 (6-26); Bilirubin,Total 0.6 mg/dL (0.3-1.0); Blood Urea Nitrogen 13 mg/dL (8-23); Calcium 7.8 mg/dL (8.6-10.3); Carbon Dioxide 21 mEq/L (23-29); Chloride 100 mEq/L (98-107); Globulin 2.8 g/dL (2.4-3.5); Glucose 160 mg/dL (70-105); Osmolality,Calculated 276 (280-300); Potassium 4.2 mEq/L (3.5-5.1); Sodium 131 mEq/L (136-145); Total Protein 6.2 g/dL (6.4-8.9); eGFR For African Americans > 60 (> 60); eGFR For Non-African Americans > 60 (> 60)
[2021-07-15] MEDS: Ipratropium 1 PUFF INHALER IH SCH ×6 (03:40→23:58)
[2021-07-15] MEDS: *HR* Enoxaparin 40 MG/0.4 ML SYRINGE SQ SCH (04:51)
[2021-07-15] MEDS ORDERED: Furosemide 40 MG/4 ML VIAL IVP ONE (07:52)
[2021-07-15] MEDS ORDERED: Isovue-370 500 ML BOTTLE IVP ONE (07:53)
[2021-07-15] MEDS ORDERED: Dexamethasone Sodium Phos/PF 10 MG/ML VIAL IVP ONE (10:41)
[2021-07-15] MEDS ORDERED: TOCILIZUMAB 600 MG in 0.9 % Sodium Chloride 100 ML IVPB ONE (17:00)
[2021-07-16 02:11] LABS: Basophils % 0.3 %; Hematocrit 39.3 % (37.5-50.1); Hemoglobin 13.4 g/dL (12.9-16.9); Immature Granulocytes % 1.6 % (0-4); Lymphocytes # 0.6 K/mcL (0.6-4.6); Lymphocytes % 6.6 %; Mean Corpuscular HGB Conc 34.1 g/dL (31.6-35.5); Mean Corpuscular Hemoglobin 32.4 pg (28.0-33.3); Mean Corpuscular Volume 94.9 fL (83.0-100.0); Mean Platelet Volume 10.3 fL (9.4-12.4); Monocytes # 0.3 K/mcL (0.0-1.3); Monocytes % 3.2 %; Neutrophils # 7.8 K/mcL (1.6-8.9); Platelet Count 255 K/mcL (140-400); Red Blood Count 4.14 M/mcL (4.19-5.50); Red Cell Distribution Width 13.2 % (11.5-14.5); Segmented Neutrophils % 88.3 %; White Blood Count 8.9 K/mcL (4.3-11.1)
[2021-07-16 02:26] LABS: Alanine Aminotransferase 49 Units/L (7-52); Albumin 3.4 g/dL (3.5-5.7); Albumin/Globulin Ratio 1.1 (1.1-2.2); Alkaline Phosphatase 44 Units/L (34-104); Aspartate Amino Transferase 51 Units/L (13-39); BUN/Creatinine Ratio 25 (6-26); Bilirubin,Total 0.4 mg/dL (0.3-1.0); Blood Urea Nitrogen 21 mg/dL (8-23); Calcium 8.5 mg/dL (8.6-10.3); Carbon Dioxide 21 mEq/L (23-29); Chloride 99 mEq/L (98-107); Glucose 187 mg/dL (70-105); Osmolality,Calculated 278 (280-300); Sodium 130 mEq/L (136-145); Total Protein 6.4 g/dL (6.4-8.9); eGFR For African Americans > 60 (> 60); eGFR For Non-African Americans > 60 (> 60)
[2021-07-16] MEDS: Ipratropium 1 PUFF INHALER IH SCH ×6 (03:50→23:45)
[2021-07-16] MEDS: Cholecalciferol (D-3) 1,000 UNIT (25MCG) TABLET PO SCH (08:33)
[2021-07-16] MEDS: Dexamethasone Sodium Phos/PF 10 MG/ML VIAL IVP SCH (08:33)
[2021-07-16] MEDS: *HR* Enoxaparin 40 MG/0.4 ML SYRINGE SQ SCH (08:33)
[2021-07-16] MEDS: Ascorbic Acid 500 MG TABLET PO SCH (08:33)
[2021-07-16] MEDS ORDERED: Furosemide 40 MG/4 ML VIAL IVP ONE (08:35)
[2021-07-17 02:09] LABS: Basophils % 0.1 %; Hematocrit 38.3 % (37.5-50.1); Immature Granulocytes % 0.9 % (0-4); Lymphocytes # 0.4 K/mcL (0.6-4.6); Lymphocytes % 4.4 %; Mean Corpuscular HGB Conc 33.9 g/dL (31.6-35.5); Mean Corpuscular Hemoglobin 32.3 pg (28.0-33.3); Mean Platelet Volume 10.1 fL (9.4-12.4); Monocytes # 0.3 K/mcL (0.0-1.3); Monocytes % 3.5 %; Neutrophils # 7.5 K/mcL (1.6-8.9); Platelet Count 307 K/mcL (140-400); Red Blood Count 4.03 M/mcL (4.19-5.50); Red Cell Distribution Width 13.1 % (11.5-14.5); Segmented Neutrophils % 91.1 %; White Blood Count 8.2 K/mcL (4.3-11.1)
[2021-07-17 02:13] LABS: Alanine Aminotransferase 59 Units/L (7-52); Albumin 3.2 g/dL (3.5-5.7); Albumin/Globulin Ratio 1.1 (1.1-2.2); Alkaline Phosphatase 41 Units/L (34-104); Aspartate Amino Transferase 49 Units/L (13-39); BUN/Creatinine Ratio 33 (6-26); Bilirubin,Total 0.5 mg/dL (0.3-1.0); Blood Urea Nitrogen 26 mg/dL (8-23); C-Reactive Protein 48 mg/L (Less than 10); Calcium 8.4 mg/dL (8.6-10.3); Carbon Dioxide 23 mEq/L (23-29); Chloride 101 mEq/L (98-107); Globulin 2.8 g/dL (2.4-3.5); Glucose 178 mg/dL (70-105); Lactate Dehydrogenase 517 Units/L (140-271); Osmolality,Calculated 287 (280-300); Potassium 4.3 mEq/L (3.5-5.1); Sodium 134 mEq/L (136-145); eGFR For African Americans > 60 (> 60); eGFR For Non-African Americans > 60 (> 60)
[2021-07-17 02:31] LABS: Ferritin 1115 ng/mL (20-250)
[2021-07-17] MEDS: Ipratropium 1 PUFF INHALER IH SCH ×5 (03:33→20:38)
[2021-07-17] MEDS: *HR* Enoxaparin 40 MG/0.4 ML SYRINGE SQ SCH (04:37)
[2021-07-17] MEDS: Furosemide 40 MG/4 ML VIAL IVP SCH (08:48)
[2021-07-17] MEDS: Dexamethasone Sodium Phos/PF 10 MG/ML VIAL IVP SCH (08:49)
[2021-07-17] MEDS: Cholecalciferol (D-3) 1,000 UNIT (25MCG) TABLET PO SCH (08:50)
[2021-07-17] MEDS: Ascorbic Acid 500 MG TABLET PO SCH (08:50)
[2021-07-18] MEDS: Ipratropium 1 PUFF INHALER IH SCH ×6 (00:12→20:05)
[2021-07-18 02:59] LABS: Basophils % 0.4 %; Hematocrit 39.7 % (37.5-50.1); Hemoglobin 13.3 g/dL (12.9-16.9); Immature Granulocytes % 1.5 % (0-4); Lymphocytes # 0.5 K/mcL (0.6-4.6); Lymphocytes % 8.3 %; Mean Corpuscular HGB Conc 33.5 g/dL (31.6-35.5); Mean Corpuscular Hemoglobin 32.4 pg (28.0-33.3); Mean Corpuscular Volume 96.8 fL (83.0-100.0); Mean Platelet Volume 9.9 fL (9.4-12.4); Monocytes # 0.2 K/mcL (0.0-1.3); Monocytes % 3.9 %; Neutrophils # 4.7 K/mcL (1.6-8.9); Platelet Count 308 K/mcL (140-400); Segmented Neutrophils % 85.9 %; White Blood Count 5.5 K/mcL (4.3-11.1)
[2021-07-18 03:17] LABS: Alanine Aminotransferase 65 Units/L (7-52); Albumin 3.2 g/dL (3.5-5.7); Albumin/Globulin Ratio 1.2 (1.1-2.2); Alkaline Phosphatase 49 Units/L (34-104); Aspartate Amino Transferase 39 Units/L (13-39); BUN/Creatinine Ratio 33 (6-26); Bilirubin,Total 0.7 mg/dL (0.3-1.0); Blood Urea Nitrogen 26 mg/dL (8-23); Calcium 8.2 mg/dL (8.6-10.3); Carbon Dioxide 26 mEq/L (23-29); Chloride 97 mEq/L (98-107); Globulin 2.7 g/dL (2.4-3.5); Glucose 137 mg/dL (70-105); Osmolality,Calculated 281 (280-300); Potassium 4.4 mEq/L (3.5-5.1); Sodium 132 mEq/L (136-145); Total Protein 5.9 g/dL (6.4-8.9); eGFR For African Americans > 60 (> 60); eGFR For Non-African Americans > 60 (> 60)
[2021-07-18] MEDS: *HR* Enoxaparin 40 MG/0.4 ML SYRINGE SQ SCH (05:26)
[2021-07-18] MEDS: Furosemide 40 MG/4 ML VIAL IVP SCH (08:11)
[2021-07-18] MEDS: Ascorbic Acid 500 MG TABLET PO SCH (09:37)
[2021-07-18] MEDS: Dexamethasone Sodium Phos/PF 10 MG/ML VIAL IVP SCH (09:37)
[2021-07-18] MEDS: Cholecalciferol (D-3) 1,000 UNIT (25MCG) TABLET PO SCH (09:37)
[2021-07-18] MEDS ORDERED: *HR* Enoxaparin 60 MG/0.6 ML SYRINGE SQ ONE (12:30)
[2021-07-18] MEDS ORDERED: *HR* Metoprolol 5 MG/5 ML VIAL IVP ONE ×2 (19:06→21:25)
[2021-07-18] MEDS: *HR* Enoxaparin 100 MG/ML SYRINGE SQ SCH (20:17)
[2021-07-18] MEDS: Saline Nasal Spray 44 ML BOTTLE NS PRN (23:13)
[2021-07-18] MEDS: Saliva Stimulant 44.3ml BOTTLE PO PRN (23:13)
[2021-07-19] MEDS: Ipratropium 1 PUFF INHALER IH SCH ×6 (00:05→20:25)
[2021-07-19 01:26] LABS: Basophils % 0.6 %; Hematocrit 38.2 % (37.5-50.1); Hemoglobin 13.2 g/dL (12.9-16.9); Immature Granulocytes % 3.1 % (0-4); Lymphocytes # 0.4 K/mcL (0.6-4.6); Mean Corpuscular HGB Conc 34.6 g/dL (31.6-35.5); Mean Corpuscular Hemoglobin 32.2 pg (28.0-33.3); Mean Corpuscular Volume 93.2 fL (83.0-100.0); Mean Platelet Volume 9.6 fL (9.4-12.4); Monocytes # 0.1 K/mcL (0.0-1.3); Monocytes % 3.6 %; Platelet Count 278 K/mcL (140-400); Red Cell Distribution Width 12.7 % (11.5-14.5); Segmented Neutrophils % 82.7 %; White Blood Count 3.6 K/mcL (4.3-11.1)
[2021-07-19 01:42] LABS: Alanine Aminotransferase 70 Units/L (7-52); Albumin 3.1 g/dL (3.5-5.7); Albumin/Globulin Ratio 1.2 (1.1-2.2); Alkaline Phosphatase 49 Units/L (34-104); Aspartate Amino Transferase 34 Units/L (13-39); BUN/Creatinine Ratio 23 (6-26); Bilirubin,Total 0.8 mg/dL (0.3-1.0); Blood Urea Nitrogen 14 mg/dL (8-23); C-Reactive Protein 16 mg/L (Less than 10); Carbon Dioxide 25 mEq/L (23-29); Chloride 98 mEq/L (98-107); Globulin 2.6 g/dL (2.4-3.5); Glucose 123 mg/dL (70-105); Lactate Dehydrogenase 521 Units/L (140-271); Osmolality,Calculated 274 (280-300); Potassium 4.4 mEq/L (3.5-5.1); Sodium 131 mEq/L (136-145); Total Protein 5.7 g/dL (6.4-8.9); eGFR For African Americans > 60 (> 60); eGFR For Non-African Americans > 60 (> 60)
[2021-07-19] MEDS ORDERED: *HR* LORazepam 2 MG/ML VIAL IVP ONE (03:31)
[2021-07-19] MEDS: Saline Nasal Spray 44 ML BOTTLE NS PRN (05:25)
[2021-07-19] MEDS: Saliva Stimulant 44.3ml BOTTLE PO PRN (05:25)
[2021-07-19] MEDS ORDERED: *HR* Metoprolol 5 MG/5 ML VIAL IVP ONE (07:13)
[2021-07-19] MEDS ORDERED: 0.9 % Sodium Chloride 500 ML ONE (07:32)
[2021-07-19] MEDS ORDERED: 0.9 % Sodium Chloride 500 ML IVC ONE (07:34)
[2021-07-19 07:42] LABS: ABG Base Excess 4 mEq/L (-2 to 3); ABG HCO3 26 mEq/L (21-27); ABG Oxygen Saturation 88 % (95-98); ABG PCO2 33 mmHg (35-45); ABG PH 7.51 pH Units (7.32-7.45); ABG PO2 49 mmHg (85-104); ABG TCO2 27 mEq/L (20-26)
[2021-07-19] MEDS: Dexamethasone Sodium Phos/PF 10 MG/ML VIAL IVP SCH (08:00)
[2021-07-19] MEDS: *HR* Enoxaparin 100 MG/ML SYRINGE SQ SCH ×2 (08:01→20:07)
[2021-07-19] MEDS: Cholecalciferol (D-3) 1,000 UNIT (25MCG) TABLET PO SCH (08:30)
[2021-07-19] MEDS: Ascorbic Acid 500 MG TABLET PO SCH (08:30)
[2021-07-19] MEDS ORDERED: *HR* Metoprolol 5 MG/5 ML VIAL IVP PRN (12:18)
[2021-07-19 13:21] LABS: Ferritin 835 ng/mL (20-250)
[2021-07-20] MEDS: Ipratropium 1 PUFF INHALER IH SCH ×6 (00:19→20:30)
[2021-07-20] MEDS ORDERED: Dexmedetomidine HCl 400 MCG/100 ML MLS IVC SCH (01:45)
[2021-07-20] MEDS ORDERED: Dexmedetomidine HCl 400 MCG/100 ML MLS IVC ONE (01:45)
[2021-07-20] MEDS: Dexmedetomidine HCl 400 MCG/100 ML MLS IVC SCH ×2 (02:15→11:18)
[2021-07-20 06:07] LABS: Basophils % 0.9 %; Eosinophils # 0.1 K/mcL (0.0-0.6); Eosinophils % 2.8 %; Hematocrit 42.4 % (37.5-50.1); Hemoglobin 14.1 g/dL (12.9-16.9); Immature Granulocytes % 3.3 % (0-4); Lymphocytes # 0.4 K/mcL (0.6-4.6); Lymphocytes % 9.4 %; Mean Corpuscular HGB Conc 33.3 g/dL (31.6-35.5); Mean Corpuscular Hemoglobin 32.4 pg (28.0-33.3); Mean Corpuscular Volume 97.5 fL (83.0-100.0); Mean Platelet Volume 10.2 fL (9.4-12.4); Monocytes # 0.1 K/mcL (0.0-1.3); Monocytes % 2.1 %; Neutrophils # 3.4 K/mcL (1.6-8.9); Platelet Count 170 K/mcL (140-400); Red Blood Count 4.35 M/mcL (4.19-5.50); Red Cell Distribution Width 12.8 % (11.5-14.5); Segmented Neutrophils % 81.5 %; White Blood Count 4.2 K/mcL (4.3-11.1)
[2021-07-20 06:23] LABS: Alanine Aminotransferase 56 Units/L (7-52); Albumin 3.1 g/dL (3.5-5.7); Albumin/Globulin Ratio 1.3 (1.1-2.2); Alkaline Phosphatase 52 Units/L (34-104); Aspartate Amino Transferase 32 Units/L (13-39); BUN/Creatinine Ratio 29 (6-26); Bilirubin,Total 0.8 mg/dL (0.3-1.0); Blood Urea Nitrogen 22 mg/dL (8-23); Calcium 8.2 mg/dL (8.6-10.3); Carbon Dioxide 24 mEq/L (23-29); Chloride 98 mEq/L (98-107); Globulin 2.3 g/dL (2.4-3.5); Glucose 107 mg/dL (70-105); Lactate Dehydrogenase 747 Units/L (140-271); Osmolality,Calculated 276 (280-300); Potassium 4.3 mEq/L (3.5-5.1); Sodium 131 mEq/L (136-145); Total Protein 5.4 g/dL (6.4-8.9); eGFR For African Americans > 60 (> 60); eGFR For Non-African Americans > 60 (> 60)
[2021-07-20 06:39] LABS: Platelet Estimate Normal (Normal)
[2021-07-20] MEDS: *HR* Enoxaparin 100 MG/ML SYRINGE SQ SCH ×2 (08:07→19:46)
[2021-07-20] MEDS: Ascorbic Acid 500 MG TABLET PO SCH (08:08)
[2021-07-20] MEDS: Cholecalciferol (D-3) 1,000 UNIT (25MCG) TABLET PO SCH (08:08)
[2021-07-20] MEDS ORDERED: Dexamethasone Sodium Phos/PF 10 MG/ML VIAL IVP SCH (09:00)
[2021-07-20] MEDS: Morphine Sulfate Oral CONC 10 MG/0.5 ML ORAL.SYG SL PRN ×3 (14:38→23:04)
[2021-07-20 15:18] LABS: ABG Base Excess 2 mEq/L (-2 to 3); ABG HCO3 25 mEq/L (21-27); ABG Oxygen Saturation 90 % (95-98); ABG PCO2 32 mmHg (35-45); ABG PO2 53 mmHg (85-104); ABG TCO2 26 mEq/L (20-26)
[2021-07-20] MEDS: Furosemide 40 MG/4 ML VIAL IVP SCH (15:57)
[2021-07-21] MEDS: Morphine Sulfate Oral CONC 10 MG/0.5 ML ORAL.SYG SL PRN ×3 (03:14→22:48)
[2021-07-21] MEDS: Ipratropium 1 PUFF INHALER IH SCH ×8 (04:01→23:54)
[2021-07-21 07:06] LABS: BUN/Creatinine Ratio 35 (6-26); Blood Urea Nitrogen 33 mg/dL (8-23); Calcium 8.2 mg/dL (8.6-10.3); Carbon Dioxide 28 mEq/L (23-29); Chloride 97 mEq/L (98-107); Glucose 102 mg/dL (70-105); Osmolality,Calculated 285 (280-300); Potassium 4.2 mEq/L (3.5-5.1); Sodium 134 mEq/L (136-145); eGFR For African Americans > 60 (> 60); eGFR For Non-African Americans > 60 (> 60)
[2021-07-21] MEDS: Pantoprazole 40 MG VIAL IVP SCH (08:22)
[2021-07-21] MEDS: Cholecalciferol (D-3) 1,000 UNIT (25MCG) TABLET PO SCH (08:23)
[2021-07-21] MEDS: Dexamethasone Sodium Phos/PF 10 MG/ML VIAL IVP SCH (08:23)
[2021-07-21] MEDS: Furosemide 40 MG/4 ML VIAL IVP SCH (08:23)
[2021-07-21] MEDS: Ascorbic Acid 500 MG TABLET PO SCH (08:23)
[2021-07-21] MEDS: *HR* Enoxaparin 100 MG/ML SYRINGE SQ SCH ×2 (08:25→21:24)
[2021-07-21] MEDS ORDERED: Dexamethasone Sodium Phos/PF 10 MG/ML VIAL IVP SCH (09:00)
[2021-07-21] MEDS: GuaiFENesin/Dextromethorphan TABLET PO PRN (14:55)
[2021-07-21 17:55] LABS: Ferritin 796 ng/mL (20-250)
[2021-07-22] MEDS: Dexmedetomidine HCl 400 MCG/100 ML MLS IVC SCH (01:08)
[2021-07-22] MEDS: Ipratropium 1 PUFF INHALER IH SCH ×6 (03:44→23:05)
[2021-07-22 04:56] LABS: Basophils % 0.3 %; Eosinophils # 0.2 K/mcL (0.0-0.6); Eosinophils % 3.1 %; Hematocrit 43.1 % (37.5-50.1); Hemoglobin 15.3 g/dL (12.9-16.9); Immature Granulocytes % 2.1 % (0-4); Lymphocytes # 0.3 K/mcL (0.6-4.6); Mean Corpuscular HGB Conc 35.5 g/dL (31.6-35.5); Mean Corpuscular Hemoglobin 32.9 pg (28.0-33.3); Mean Corpuscular Volume 92.7 fL (83.0-100.0); Mean Platelet Volume 9.9 fL (9.4-12.4); Monocytes # 0.1 K/mcL (0.0-1.3); Monocytes % 1.7 %; Neutrophils # 6.2 K/mcL (1.6-8.9); Platelet Count 287 K/mcL (140-400); Red Blood Count 4.65 M/mcL (4.19-5.50); Red Cell Distribution Width 12.8 % (11.5-14.5); Segmented Neutrophils % 88.8 %
[2021-07-22 05:17] LABS: Platelet Estimate Normal (Normal)
[2021-07-22 05:22] LABS: BUN/Creatinine Ratio 44 (6-26); Blood Urea Nitrogen 32 mg/dL (8-23); Calcium 8.3 mg/dL (8.6-10.3); Carbon Dioxide 27 mEq/L (23-29); Chloride 97 mEq/L (98-107); Glucose 133 mg/dL (70-105); Lactate Dehydrogenase 714 Units/L (140-271); Osmolality,Calculated 285 (280-300); Potassium 4.1 mEq/L (3.5-5.1); Sodium 133 mEq/L (136-145); eGFR For African Americans > 60 (> 60); eGFR For Non-African Americans > 60 (> 60)
[2021-07-22 05:41] LABS: Ferritin 794 ng/mL (20-250)
[2021-07-22] MEDS: Dexamethasone Sodium Phos/PF 10 MG/ML VIAL IVP SCH (09:46)
[2021-07-22] MEDS: Pantoprazole 40 MG VIAL IVP SCH (09:46)
[2021-07-22] MEDS: Furosemide 40 MG/4 ML VIAL IVP SCH (09:46)
[2021-07-22] MEDS: Ascorbic Acid 500 MG TABLET PO SCH (09:47)
[2021-07-22] MEDS: GuaiFENesin/Dextromethorphan TABLET PO PRN (09:47)
[2021-07-22] MEDS: Morphine Sulfate Oral CONC 10 MG/0.5 ML ORAL.SYG SL PRN (09:47)
[2021-07-22] MEDS: Cholecalciferol (D-3) 1,000 UNIT (25MCG) TABLET PO SCH (09:47)
[2021-07-22] MEDS: *HR* Enoxaparin 100 MG/ML SYRINGE SQ SCH ×2 (09:48→20:58)
[2021-07-23] MEDS: Morphine Sulfate Oral CONC 10 MG/0.5 ML ORAL.SYG SL PRN ×3 (00:15→08:15)
[2021-07-23 01:27] LABS: ABG Base Excess 3 mEq/L (-2 to 3); ABG HCO3 26 mEq/L (21-27); ABG Oxygen Saturation 81 % (95-98); ABG PCO2 37 mmHg (35-45); ABG PH 7.46 pH Units (7.32-7.45); ABG PO2 43 mmHg (85-104); ABG TCO2 28 mEq/L (20-26)
[2021-07-23 01:37] LABS: Hematocrit 40.8 % (37.5-50.1); Mean Corpuscular HGB Conc 34.3 g/dL (31.6-35.5); Mean Corpuscular Hemoglobin 32.3 pg (28.0-33.3); Mean Corpuscular Volume 94.2 fL (83.0-100.0); Mean Platelet Volume 10.1 fL (9.4-12.4); Platelet Count 269 K/mcL (140-400); Red Blood Count 4.33 M/mcL (4.19-5.50); Red Cell Distribution Width 12.7 % (11.5-14.5); White Blood Count 8.2 K/mcL (4.3-11.1)
[2021-07-23 01:54] LABS: BUN/Creatinine Ratio 42 (6-26); Blood Urea Nitrogen 29 mg/dL (8-23); Carbon Dioxide 28 mEq/L (23-29); Chloride 97 mEq/L (98-107); Glucose 110 mg/dL (70-105); Osmolality,Calculated 284 (280-300); Potassium 4.2 mEq/L (3.5-5.1); Sodium 134 mEq/L (136-145); eGFR For African Americans > 60 (> 60); eGFR For Non-African Americans > 60 (> 60)
[2021-07-23] MEDS: Ipratropium 1 PUFF INHALER IH SCH ×5 (03:34→19:45)
[2021-07-23] MEDS: Dexmedetomidine HCl 400 MCG/100 ML MLS IVC SCH (04:04)
[2021-07-23] MEDS: Cholecalciferol (D-3) 1,000 UNIT (25MCG) TABLET PO SCH (08:37)
[2021-07-23] MEDS: Ascorbic Acid 500 MG TABLET PO SCH (08:37)
[2021-07-23] MEDS: Dexamethasone Sodium Phos/PF 10 MG/ML VIAL IVP SCH (10:25)
[2021-07-23] MEDS: Furosemide 40 MG/4 ML VIAL IVP SCH (10:26)
[2021-07-23] MEDS: Pantoprazole 40 MG VIAL IVP SCH (10:28)
[2021-07-23] MEDS: *HR* Enoxaparin 100 MG/ML SYRINGE SQ SCH ×2 (11:28→21:28)
[2021-07-23] MEDS: *HR* LORazepam 2 MG/ML VIAL IVP PRN ×3 (13:13→23:42)
[2021-07-23] MEDS: Piperacillin/Tazobactam 3.375 GM in 0.9 % Sodium Chloride Mini Bag 100 ML IVPB SCH ×2 (17:36→23:42)
[2021-07-23] MEDS ORDERED: 0.9 % Sodium Chloride 250 ML IVC ONE (19:21)
[2021-07-23 20:23] VITALS: TEMP 98.2
[2021-07-23] MEDS ORDERED: 0.9 % Sodium Chloride 500 ML IVC ONE (21:20)
[2021-07-24] MEDS: Ipratropium 1 PUFF INHALER IH SCH ×5 (00:29→10:47)
[2021-07-24 01:23] VITALS: PULSE 74; O2SAT 81
[2021-07-24 01:29] VITALS: BP 87/65
[2021-07-24] MEDS: Morphine Sulfate Oral CONC 10 MG/0.5 ML ORAL.SYG SL PRN (01:40)
[2021-07-24] MEDS ORDERED: Scopolamine Patch 1.5 MG PATCH.TD72 TD ONE (04:07)
[2021-07-24] MEDS ORDERED: Atropine 1% Opth Drops 100 DROP/5 ML BOTTLE SL PRN (04:07)
[2021-07-24] MEDS ORDERED: Morphine Sulfate Oral CONC 10 MG/0.5 ML ORAL.SYG SL PRN (04:12)
[2021-07-24] MEDS: *HR* LORazepam 2 MG/ML VIAL IVP PRN ×4 (04:34→10:04)
[2021-07-24] MEDS: Haloperidol Lactate 5 MG/ML VIAL IVP PRN ×2 (05:31→09:12)
[2021-07-24] MEDS ORDERED: Morphine Sulfate 2 MG/ML SYRINGE IVP PRN (06:15)
[2021-07-24] MEDS: Pantoprazole 40 MG VIAL IVP SCH (08:11)
[2021-07-24] MEDS: *HR* Enoxaparin 100 MG/ML SYRINGE SQ SCH (08:11)
[2021-07-24] MEDS: Morphine Sulfate 2 MG/ML SYRINGE IVP PRN ×2 (08:16→11:51)
[2021-07-24] MEDS ORDERED: FentaNYL (PF) 1,000 MCG/100 ML IV.SOLN IVC SCH ×2 (08:30→12:15)
[2021-07-24] MEDS: Cholecalciferol (D-3) 1,000 UNIT (25MCG) TABLET PO SCH (09:21)
[2021-07-24] MEDS: Ascorbic Acid 500 MG TABLET PO SCH (09:21)
[2021-07-24] MEDS ORDERED: *HR* FentaNYL (PF) 100 MCG/2 ML VIAL IVP PRN (12:10)
[2021-07-24] MEDS ORDERED: *HR* LORazepam 2 MG/ML VIAL IVP PRN (12:12)
== END 2021-07-24 15:44 | disposition expired | DRG 177 ==
LOC: EMEROOARM 14:16 → 3BNU 14:16 → SUATTDRO 17:47 → 3BNU 18:30 → 2NENU 07-19 09:24
PROVIDERS: ADMIT Pharmacist; ATTEND Internal Medicine